=== PATIENT | female | born 1975 | race Caucasian/White ===

== ENCOUNTER → 2017-06-07 | Outpatient (CLI) | payer MEDICARE, MEDICAID ==
[2017-06-07 12:27] LABS: BF DIFF IF INDICATED? YES (NO); RBC ASCITES FLUID < 10 (<10mm3 cells/uL); TNC ASCITES FLUID 160 cells/uL (0-20)
[2017-06-07 13:23] LABS: CC BF DIFF EXAM CYTOCENTRIFUGE
--- NOTE | 2017-06-07 15:49 | REP ---
RIGHT PARACENTESIS: The procedure was performed by BLADIMIR Pace under the direct and personal supervision of Dr. Muse. The procedure along with its risks, benefits, and complications were discussed with the patient prior to the procedure. Informed consent was obtained both verbally and written. The patient was identified in the ultrasound suite and placed in a supine position. The bilateral lower quadrants were interrogated with ultrasound. The right lower quadrant demonstrated a moderate sized fluid pocket. An appropriate site was chosen for needle entry and this area was marked, prepped, and draped in the usual sterile fashion. A procedural "time-out" was performed to ensure that the correct patient, site and procedure were being performed. Local infiltrative anesthesia was achieved with 1% Xylocaine. A 19 gauge [employer] Catheter was advanced through the abdominal wall under continuous negative pressure until serous fluid was aspirated. The needle was removed and the catheter was advanced. Approximately 3200 mL of cloudy yellow fluid was removed. The catheter was then removed, hemostasis was achieved, and a soft dressing was applied to the entry site. The patient tolerated the procedure well and had no immediate complications. Upon completion of 1 hour of observation in the interventional radiology department the patient was discharged home in good condition. Reviewed by BLADIMIR Barber 06/07/2017 04:34 PEdited and Signed by Fransico Muse MD 06/07/2017 09:10 P
== END ==
LOC: M RADPRO 10:01
PROVIDERS: ATTEND Internal Medicine Gastroenterology
DX: R18.8 Other ascites (principal); K70.30 Alcoholic cirrhosis of liver without ascites; I34.0 Nonrheumatic mitral (valve) insufficiency; K42.9 Umbilical hernia without obstruction or gangrene; D64.9 Anemia, unspecified; Z88.1 Allergy status to other antibiotic agents; Z91.018 Allergy to other foods; Z79.899 Other long term (current) drug therapy
CPT/HCPCS: 49083; 88108; 88305; 88313; 89051; 96365; P9047

== ENCOUNTER → 2017-07-06 | Outpatient (CLI) | payer MEDICARE, MEDICAID ==
--- NOTE | 2017-07-06 17:31 | REP ---
Ultrasound-guided paracentesis The procedure was performed under the direct supervision of Dr. Gaitan. The risks and benefits of the procedure were explained to the patient and informed consent was obtained. The largest pocket of fluid was localized in the left flank using ultrasound guidance. The skin was prepped and draped in a sterile fashion. 1% lidocaine was used as a local anesthetic. An 8-K[place] multi side-hole catheter was inserted using trocar technique. 5,250 ml of cloudy yellow fluid was withdrawn and discarded. The the patient tolerated the procedure well and there were no immediate complications. After the appropriate amount of monitored convalescence the patient was discharged from the department. Reviewed by BLADIMIR Borja 07/06/2017 02:41 PSigned by Rafael Gaitan MD 07/06/2017 05:23 P
== END ==
LOC: M RADPRO 11:59
PROVIDERS: ATTEND Internal Medicine Gastroenterology
DX: K70.31 Alcoholic cirrhosis of liver with ascites (principal); D64.9 Anemia, unspecified; Z87.891 Personal history of nicotine dependence; Z88.1 Allergy status to other antibiotic agents; Z91.018 Allergy to other foods; Z79.899 Other long term (current) drug therapy
CPT/HCPCS: 49083; 96365; P9047